=== PATIENT | male | born 1930 | race Two or more races ===

== ENCOUNTER 2018-11-24 05:56 | Emergency (ER) | payer MEDICARE, OTHER ==
[~2018-11-24] VITALS: Ht 172.7 cm; Wt 75.3 kg
--- NOTE | 2018-11-24 06:10 | NUR ---
PT BIBRA. C/O "CECILE HAD A COUGH FOR ABOUT A YEAR NOW, DRY COUGH" [id number]. AMBULATORY. -SOB. -ACUTE DISTRESS NOTED.
--- NOTE | 2018-11-24 06:18 | NUR ---
XRAY AT BEDSIDE.
[2018-11-24 07:09] LABS: BASOPHILS % (AUTO) 0.6 % (0.0-2.0); HEMATOCRIT 41 % (39-51); HEMOGLOBIN 13.9 g/dL (13.5-17.5); LYMPHOCYTES # (AUTO) 2.5 /CMM (0.8-4.8); LYMPHOCYTES % (AUTO) 38.3 % (20.0-44.0); MEAN CORPUSCULAR HGB CONC 34 g/dl (31.0-36.0); MEAN CORPUSCULAR VOLUME 91 fL (80-96); MONOCYTES # (AUTO) 0.6 /CMM (0.1-1.30); MONOCYTES % (AUTO) 9.1 % (2.0-12.0); NEUTROPHILS # (AUTO) 3.3 /CMM (1.8-8.9); PLATELET COUNT (AUTO) 167 /CMM (150-450); RED BLOOD CELL COUNT(AUTO) 4.47 MIL/uL (4.5-6.0); WHITE BLOOD COUNT (AUTO) 6.6 K/uL (4.3-11.0)
[2018-11-24 07:17] LABS: CALCIUM, SERUM 8.6 mg/dL (8.5-10.1); CARBON DIOXIDE 26 mmol/L (21-32); CHLORIDE 105 mmol/L (98-107); CREATININE 1.9 mg/dL (0.6-1.3); GLUCOSE 292 mg/dL (74-106); POTASSIUM 4.2 mmol/L (3.5-5.1); SODIUM SERUM 141 mmol/L (136-145); UREA NITROGEN, BLOOD 29 mg/dL (7-18)
--- NOTE | 2018-11-24 07:18 | NUR ---
REPORT RECEIVED FROM JEANNE SMITH FOR [facility]
[2018-11-24 07:23] LABS: ALANINE AMINOTRANSFERASE 27 U/L (12-78); ALBUMIN 3.7 g/dL (3.4-5.0); ALKALINE PHOSPHATASE 164 U/L (46-116); ASPARTATE AMINOTRANSFERASE 17 U/L (15-37); BILIRUBIN,DIRECT 0.2 mg/dL (0.0-0.2); BILIRUBIN,TOTAL 0.6 mg/dL (0.2-1.0); TOTAL PROTEIN, SERUM 7.4 g/dL (6.4-8.2)
[2018-11-24] MEDS ORDERED: IV NS 0.9% 250 ML IV ONE (07:32)
[2018-11-24] MEDS ORDERED: CT SWABBABLE VALVE TRANS SET 1 EA INFUS.SET MC ONE (07:32)
[2018-11-24] MEDS ORDERED: IOHEXOL-300 100 ML VIAL IV ONE (07:32)
--- NOTE | 2018-11-24 07:40 | NUR ---
WHEELED OUT VIA WHEELCHAIR FOR CT CHEST W CONTRAST
[2018-11-24 08:42] VITALS: BP 145/81
--- NOTE | 2018-11-24 08:44 | NUR ---
Patient discharged to home in stable condition. Written and verbal after care instructions given. Patient verbalizes understanding of instruction.IV removed. Catheter intact and site benign. Pressure and 4x4 applied to site. No bleeding noted.
== END 2018-11-24 08:43 | disposition home or self-care (01) ==
LOC: ER 05:58
DX: R05 Cough (principal); E11.9 Type 2 diabetes mellitus without complications; Z85.038 Personal history of other malignant neoplasm of large intestine; Z98.890 Other specified postprocedural states
CPT/HCPCS: 36415; 71045; 71260; 74177; 80076; 80048; 85025; 99284; A4606; J7050; Q9967

== ENCOUNTER 2020-06-02 20:19 | Emergency (ER) | payer MEDICARE ==
[~2020-06-02] VITALS: Ht 172.7 cm; Wt 76.7 kg
[2020-06-02] MEDS ORDERED: IV NS 0.9% 1,000 ML BAG IV ONE (20:30)
[2020-06-02] MEDS ORDERED: ONDANSETRON HCL/PF 4 MG/2 ML VIAL IVP ONE (20:30)
--- NOTE | 2020-06-02 20:30 | NUR ---
COVID AND BLOOD COLLECTED TO LAB
--- NOTE | 2020-06-02 20:31 | NUR ---
PT [id number] FROM HOME C/O GENERALIZED ABD PAIN +N/V X 1 WEEK. PT AAOX4, VSS, RESPIRATIONS EVEN AND UNLABORED ON RA W/ AND NOTED W/ NAD NOTED. PT CONNECTED TO THE PANEL MACHINE SETTER AND POX
[2020-06-02] MEDS ORDERED: ONDANSETRON HCL/PF 4 MG/2 ML VIAL ONE (20:34)
--- NOTE | 2020-06-02 20:36 | NUR ---
CALLED FOR COVID SWAB
[2020-06-02 21:00] LABS: BASOPHILS % (AUTO) 0.3 % (0.0-2.0); EOSINOPHILS % (AUTO) 0.5 % (0.0-6.0); HEMATOCRIT 41 % (39-51); HEMOGLOBIN 13.8 g/dL (13.5-17.5); LYMPHOCYTES # (AUTO) 2.3 /CMM (0.8-4.8); LYMPHOCYTES % (AUTO) 37.2 % (20.0-44.0); MEAN CORPUSCULAR HGB CONC 34 g/dl (31.0-36.0); MEAN CORPUSCULAR VOLUME 93 fL (80-96); MONOCYTES # (AUTO) 0.7 /CMM (0.1-1.30); MONOCYTES % (AUTO) 12.2 % (2.0-12.0); NEUTROPHILS # (AUTO) 3.1 /CMM (1.8-8.9); NEUTROPHILS % (AUTO) 49.8 % (43.0-81.0); PLATELET COUNT (AUTO) 203 /CMM (150-450); RED BLOOD CELL COUNT(AUTO) 4.45 MIL/uL (4.5-6.0); WHITE BLOOD COUNT (AUTO) 6.1 K/uL (4.3-11.0)
[2020-06-02] MEDS ORDERED: IV LR 1000 ML 1,000 ML IV ONE (21:00)
[2020-06-02] MEDS ORDERED: IOHEXOL-300 100 ML VIAL IV ONE (21:08)
[2020-06-02] MEDS ORDERED: IV NS 0.9% 0 ML IV ONE (21:08)
[2020-06-02 21:09] LABS: CALCIUM, SERUM 8.4 mg/dL (8.5-10.1); CARBON DIOXIDE 24 mmol/L (21-32); CHLORIDE 104 mmol/L (98-107); GLUCOSE 65 mg/dL (74-106); POTASSIUM 4.2 mmol/L (3.5-5.1); SODIUM SERUM 139 mmol/L (136-145); UREA NITROGEN, BLOOD 36 mg/dL (7-18)
[2020-06-02 21:15] LABS: ALANINE AMINOTRANSFERASE 20 U/L (12-78); ALBUMIN 3.5 g/dL (3.4-5.0); ALKALINE PHOSPHATASE 132 U/L (46-116); ASPARTATE AMINOTRANSFERASE 19 U/L (15-37); BILIRUBIN,DIRECT 0.3 mg/dL (0.0-0.2); BILIRUBIN,TOTAL 0.6 mg/dL (0.2-1.0); LIPASE 18 U/L (73-393); TOTAL PROTEIN, SERUM 7.4 g/dL (6.4-8.2)
--- NOTE | 2020-06-02 21:21 | NUR ---
PT TAKEN TO RADIOLOGY FOR CT
--- NOTE | 2020-06-02 21:22 | NUR ---
PT UNABLE TO PROVIDE URINE AT THIS TIME. MADE AWARE
--- NOTE | 2020-06-02 21:35 | NUR ---
PT BACK FROM RADIOLOGY
--- NOTE | 2020-06-02 21:40 | NUR ---
COVID NEGATIVE PER LAB
[2020-06-02] MEDS ORDERED: LIDOCAINE 2% JEL UROJET 10 ML MM ONE (21:47)
--- NOTE | 2020-06-02 22:09 | NUR ---
URINE COLLECTED AND SENT TO LAB
[2020-06-02 22:18] VITALS: BP 157/91
--- NOTE | 2020-06-02 22:21 | NUR ---
DR. METCALF SPEAKING WITH [facility] [employer] WORK[facility] [place] , DR. DIAZ
--- NOTE | 2020-06-02 22:36 | NUR ---
TIMO (PT'S DAUGHTER)
[2020-06-02 22:45] LABS: APPEARANCE,URINE SL CLOUDY (CLEAR); BILIRUBIN,URINE NEGATIVE (NEGATIVE); BLOOD, URINE MODERATE Ery/uL (NEGATIVE); COLOR,URINE YELLOW (YELLOW); KETONES,URINE NEGATIVE (NEGATIVE); LEUKOCYTE ESTERASE ,URINE NEGATIVE (NEGATIVE); NITRITE, URINE NEGATIVE (NEGATIVE); PH,URINE 5.5 (5.0-8.0); PROTEIN,URINE 100 mg/dl (NEGATIVE); UGLUCOSE NEGATIVE (NEGATIVE); UROBILINOGEN,URINE 0.2 EU/dL (0.2)
--- NOTE | 2020-06-02 22:59 | NUR ---
TRANSFER INFORMATION: PT WILL BE TRANSFERRED TO [facility] PER INSURANCE REQUEST ACCEPTING MD: DR. ZACARIAS NUMBER FOR REPORT: [phone] EXT [id number] BED ASSIGNMENT: [id number] DEPUTY SHERIFF WILL CALL BACK WITH TRANSPORTATION ETA
--- NOTE | 2020-06-02 23:12 | NUR ---
REPORT GIVEN TO LUIS SHAFER FOR [facility]
[2020-06-02 23:17] LABS: BACTERIA,URINE RARE /HPF (None Seen); SQUAMOUS EPITHELIAL CELL,UR 0-2 /HPF (None Seen); WBC,URINE 0-2 /HPF (0-3)
--- NOTE | 2020-06-02 23:19 | NUR ---
[facility] ETA [id number]
--- NOTE | 2020-06-02 23:42 | NUR ---
REPORT GIVEN TO EMS. PT STABLE FOR TRANSFER
--- NOTE | 2020-06-02 23:42 | NUR ---
REPORT GIVEN TO [facility] FOR TRANSPORTATION [facility]
== END 2020-06-02 23:49 | disposition short-term general hospital (02) ==
LOC: ER 20:22
DX: E86.0 Dehydration (principal); R11.10 Vomiting, unspecified; R00.0 Tachycardia, unspecified; C25.9 Malignant neoplasm of pancreas, unspecified; E11.9 Type 2 diabetes mellitus without complications; I25.10 Atherosclerotic heart disease of native coronary artery without angina pectoris; Z95.1 Presence of aortocoronary bypass graft; I11.9 Hypertensive heart disease without heart failure; Z85.038 Personal history of other malignant neoplasm of large intestine; Z20.828 Contact with and (suspected) exposure to other viral communicable diseases
CPT/HCPCS: 36415; 71045-TC; 80048-TC; 80076-TC; 81000-TC; 83690-TC; 84484-TC; 85025-TC; 85730-TC; 87081-TC; C9803-CS; J2405; J3490; J7030; J7050; J7120; Q9967